=== PATIENT | male | born 1950 | race Caucasian/White ===

== ENCOUNTER 2023-10-31 08:33 | Observation (INO) | payer MEDICARE, BC ==
[2023-10-30 15:09] LABS: ALBUMIN 4.1 G/DL (3.4-5.0); ANION GAP 4 (8-16); BLOOD UREA NITROGEN 21 MG/DL (7-18); BUN/CREATININE RATIO 16.3 (10.0-20.0); CALCIUM 9.6 MG/DL (8.5-10.1); CHLORIDE 99 MMOL/L (99-107); CREATININE 1.29 MG/DL (0.60-1.10); GLUCOSE 140 MG/DL (70-104); SODIUM 133 MMOL/L (135-145); TOTAL CARBON DIOXIDE 29.9 MMOL/L (24-32); eGFR 55 ML/MIN
[2023-10-30 15:13] LABS: APTT 28 SECONDS (22-32); PROTHROMBIN TIME 11.1 SECONDS (9.0-12.0)
[2023-10-30 15:19] LABS: BASOPHILS # (AUTO) 0.1 X10'3 (0-0.2); BASOPHILS % (AUTO) 0.8 % (0-1); EOSINOPHILS # (AUTO) 0.2 X10'3 (0-0.9); EOSINOPHILS % (AUTO) 3.3 % (0-6); HEMATOCRIT 44.4 % (42.0-52.0); LYMPHOCYTES # (AUTO) 1.7 X10'3 (1.1-4.8); LYMPHOCYTES % (AUTO) 23.1 % (21-51); MEAN CORPUSCULAR HEMOGLOBIN 31.4 PG (27.0-31.0); MEAN CORPUSCULAR HGB CONC 33.8 g/dL (33.0-36.5); MEAN CORPUSCULAR VOLUME 92.9 FL (78-98); MEAN PLATELET VOLUME 9.4 FL (7.4-10.4); MONOCYTES # (AUTO) 0.7 X10'3 (0-0.9); MONOCYTES % (AUTO) 9.7 % (2-12); NEUTROPHILS # (AUTO) 4.6 X10'3 (1.8-7.7); NEUTROPHILS % (AUTO) 63.1 % (42-75); PLATELET COUNT 202 X10'3 (140-440); RED BLOOD COUNT 4.78 X10'6 (4.70-6.10); RED CELL DISTRIBUTION WIDTH 14.2 % (11.5-14.5); WHITE BLOOD COUNT 7.3 X10'3 (4.5-11.0)
[2023-10-31] VITALS (20 sets, daily range): BP systolic 136–190; BP diastolic 72–112; PULSE 46–73; RESP 15–24; TEMP 97.8; O2SAT 94–98
[~2023-10-31] VITALS: Ht 172.7 cm; Wt 143.1 kg
[2023-10-31] MEDS ORDERED: LORazepam 0.5 MG tablet PO PRN (08:45)
[2023-10-31] MEDS ORDERED: diphenhydrAMINE 25mg capsule PO PRN (08:45)
[2023-10-31] MEDS ORDERED: sodium bicarbonate 1meq/ml inj 150 ML in dextrose 5%-water 1,000 ML IV SCH (08:55)
[2023-10-31] MEDS ORDERED: ASPI81TA52 PO (08:56)
[2023-10-31] MEDS ORDERED: LISI40TA13 PO (08:56)
[2023-10-31] MEDS ORDERED: PRAM0.129 PO (08:58)
[2023-10-31] MEDS ORDERED: OMEP20CA16 PO (08:58)
[2023-10-31] MEDS ORDERED: METF-1203 PO (08:59)
[2023-10-31] MEDS ORDERED: CITA20TA28 PO (08:59)
[2023-10-31] MEDS ORDERED: METO100T14 PO (08:59)
[2023-10-31] MEDS ORDERED: LOSA1TAB39 PO (08:59)
[2023-10-31] MEDS ORDERED: ROSU20TA73 PO (09:00)
[2023-10-31] MEDS ORDERED: MODA100T31 PO (09:00)
[2023-10-31] MEDS ORDERED: CLON0.2T PO (09:00)
[2023-10-31] MEDS ORDERED: acetylcysteine 200 MG/ml 4ml vial PO PRN (09:22)
[2023-10-31] MEDS: normal saline 1,000 ML IV SCH ×2 (09:56→18:45)
[2023-10-31] MEDS ORDERED: LIDOcaine 1% (10mg/ml) 2ml vial ONE ×2 (10:50→15:11)
[2023-10-31] MEDS ORDERED: verapamil 2.5 mg/ml inj IV ONE ×2 (10:50→14:50)
[2023-10-31] MEDS ORDERED: heparin 1,000unit/ml 10ml vial 10 ML ONE ×2 (10:51→14:51)
[2023-10-31] MEDS ORDERED: midazolam 1 mg/ML 2ml injection ONE ×2 (10:51→14:51)
[2023-10-31] MEDS ORDERED: iohexol 350 MG/ML 50ML vial IV ONE ×2 (10:51→14:51)
[2023-10-31] MEDS ORDERED: nitroGLYCERIN 500mcg/5mL D5W 5 ML IV ONE ×2 (10:51→14:52)
[2023-10-31] MEDS ORDERED: fentaNYL/PF 50MCG/1 ML 2ML syringe ONE ×2 (10:51→14:51)
[2023-10-31] MEDS ORDERED: iohexol 350MG/ML 100ml bottle IV ONE ×2 (10:51→14:51)
[2023-10-31] MEDS ORDERED: heparin 1,000 UNITS/NS 500ml 500 ML ONE (14:52)
[2023-10-31] MEDS ORDERED: HYDROcodone/acetaminophen 5mg/325mg tablet PO PRN (17:10)
[2023-10-31] MEDS ORDERED: acetylcysteine 200 MG/ml 4ml vial PO ONE (18:35)
[2023-10-31] MEDS ORDERED: metoprolol tartrate 50mg tablet PO ONE (20:05)
[2023-10-31] MEDS ORDERED: cloNIDine 0.1 mg tablet PO ONE (20:05)
[2023-10-31] MEDS ORDERED: fentaNYL/PF 50MCG/1 ML 2ML syringe IV ONE (20:45)
[2023-10-31] MEDS ORDERED: hydrALAZINE 20mg/ml inj. IV ONE ×2 (20:45→21:40)
[2023-10-31] MEDS ORDERED: ketorolac tromethamine 15mg/ml inj. IV ONE (21:40)
[2023-10-31] MEDS: HYDROcodone/acetaminophen 10/325mg tab PO PRN (23:29)
[2023-11-01 02:00] VITALS: BP 139/72; PULSE 57; RESP 16; TEMP 98.3; O2SAT 96
[2023-11-01] MEDS: normal saline 1,000 ML IV SCH (04:45)
[2023-11-01 06:00] VITALS: BP 113/69; PULSE 54; RESP 20; TEMP 97.7; O2SAT 96
[2023-11-01 06:18] LABS: BASOPHILS % (AUTO) 0.5 % (0-1); EOSINOPHILS # (AUTO) 0.1 X10'3 (0-0.9); EOSINOPHILS % (AUTO) 0.9 % (0-6); HEMATOCRIT 40.7 % (42.0-52.0); HEMOGLOBIN 13.9 g/dl (14.0-17.9); LYMPHOCYTES # (AUTO) 1.4 X10'3 (1.1-4.8); LYMPHOCYTES % (AUTO) 17.3 % (21-51); MEAN CORPUSCULAR HEMOGLOBIN 31.2 PG (27.0-31.0); MEAN CORPUSCULAR HGB CONC 34.1 g/dL (33.0-36.5); MEAN CORPUSCULAR VOLUME 91.6 FL (78-98); MEAN PLATELET VOLUME 9.2 FL (7.4-10.4); MONOCYTES # (AUTO) 0.6 X10'3 (0-0.9); MONOCYTES % (AUTO) 7.3 % (2-12); NEUTROPHILS # (AUTO) 5.9 X10'3 (1.8-7.7); PLATELET COUNT 174 X10'3 (140-440); RED BLOOD COUNT 4.44 X10'6 (4.70-6.10); RED CELL DISTRIBUTION WIDTH 14.5 % (11.5-14.5)
[2023-11-01 06:33] LABS: ALBUMIN 3.5 G/DL (3.4-5.0); ANION GAP 8 (8-16); BLOOD UREA NITROGEN 20 MG/DL (7-18); BUN/CREATININE RATIO 16.1 (10.0-20.0); CHLORIDE 99 MMOL/L (99-107); CREATININE 1.24 MG/DL (0.60-1.10); GLUCOSE 140 MG/DL (70-104); POTASSIUM 3.7 MMOL/L (3.5-5.1); PRO BRAIN NATRIURETIC PEPTIDE 486 PG/ML (0-125); SODIUM 134 MMOL/L (135-145); TOTAL CARBON DIOXIDE 27.3 MMOL/L (24-32); eCRCL 52 ML/MIN; eGFR 57 ML/MIN
[2023-11-01] MEDS ORDERED: pantoprazole 40mg Tablet.DR PO SCH (07:30)
[2023-11-01] MEDS ORDERED: metoprolol tartrate 50mg tablet PO SCH (08:00)
[2023-11-01] MEDS ORDERED: losartan 50mg tablet PO SCH (08:00)
[2023-11-01] MEDS ORDERED: citalopram 20mg tablet PO SCH (08:00)
[2023-11-01] MEDS ORDERED: cloNIDine 0.1 mg tablet PO SCH (08:00)
[2023-11-01] MEDS ORDERED: modafinil 100mg tablet PO SCH (08:00)
[2023-11-01] MEDS ORDERED: aspirin 81mg, enteric-coated 1 TAB TABLET.DR PO SCH (08:00)
[2023-11-01] MEDS ORDERED: HYDROchlorothiazide 25mg tablet PO SCH (08:00)
[2023-11-01] MEDS ORDERED: lisinopril 20mg tablet PO SCH (08:00)
[2023-11-01] MEDS: HYDROcodone/acetaminophen 10/325mg tab PO PRN (08:06)
[2023-11-01 08:10] VITALS: BP_SYST 113; PULSE 54
[2023-11-01 08:30] VITALS: RESP 16; O2SAT 96
[2023-11-01 09:06] VITALS: RESP 16
[2023-11-01] MEDS ORDERED: ROSUVASTATIN CALCIUM 5 MG TABLET PO SCH (21:00)
[2023-11-01] MEDS ORDERED: pramipexole 0.25mg tablet PO SCH (21:00)
[2023-11-02] MEDS ORDERED: metFORMIN 500mg tablet PO SCH (17:30)
== END 2023-11-01 11:02 | disposition home or self-care (01) ==
LOC: SSTAY O 08:33 → PCU 3S 21:45
PROVIDERS: ADMIT Internal Medicine Cardiovascular Disease; ATTEND Internal Medicine Cardiovascular Disease
DX: I25.119 Atherosclerotic heart disease of native coronary artery with unspecified angina pectoris (principal); I35.0 Nonrheumatic aortic (valve) stenosis; E11.9 Type 2 diabetes mellitus without complications; I11.0 Hypertensive heart disease with heart failure; I50.9 Heart failure, unspecified; K21.9 Gastro-esophageal reflux disease without esophagitis; F32.A Depression, unspecified; J45.909 Unspecified asthma, uncomplicated; E66.01 Morbid (severe) obesity due to excess calories; E78.5 Hyperlipidemia, unspecified; G47.30 Sleep apnea, unspecified; E66.9 Obesity, unspecified; Z79.899 Other long term (current) drug therapy
CPT/HCPCS: 36415; 76937; 80048; 82948; 83880; 85025; 85610; 85730; 93005; 93460; 96365; 96366; 96375; 96376; A6258; G0378; J0360; J1644; J1885; J2250; J3010; J3490; J7030; J7070; Q0163; Q9967; 99152; 99153; A6402; C1725; C1751; C1894

== ENCOUNTER 2023-12-12 11:14 | Outpatient (CLI) | payer MEDICARE, BC ==
[~2023-12-12 11:14] MED LIST: ASPI81TA52 PO; CITA20TA28 PO; CLON0.2T PO; LISI40TA13 PO; LOSA1TAB39 PO; METF-1203 PO; METO100T14 PO; MODA100T31 PO; OMEP20CA16 PO; PRAM0.129 PO; ROSU20TA73 PO
[2023-12-12 12:01] LABS: BASOPHILS % (AUTO) 0.6 % (0-1); EOSINOPHILS # (AUTO) 0.2 X10'3 (0-0.9); EOSINOPHILS % (AUTO) 3.2 % (0-6); HEMOGLOBIN 14.6 g/dl (14.0-17.9); LYMPHOCYTES # (AUTO) 1.2 X10'3 (1.1-4.8); LYMPHOCYTES % (AUTO) 16.4 % (21-51); MEAN CORPUSCULAR HEMOGLOBIN 31.3 PG (27.0-31.0); MEAN CORPUSCULAR HGB CONC 33.9 g/dL (33.0-36.5); MEAN CORPUSCULAR VOLUME 92.4 FL (78-98); MEAN PLATELET VOLUME 9.3 FL (7.4-10.4); MONOCYTES # (AUTO) 0.6 X10'3 (0-0.9); MONOCYTES % (AUTO) 8.6 % (2-12); NEUTROPHILS # (AUTO) 5.2 X10'3 (1.8-7.7); NEUTROPHILS % (AUTO) 71.2 % (42-75); PLATELET COUNT 184 X10'3 (140-440); RED BLOOD COUNT 4.65 X10'6 (4.70-6.10); RED CELL DISTRIBUTION WIDTH 14.6 % (11.5-14.5); WHITE BLOOD COUNT 7.2 X10'3 (4.5-11.0)
[2023-12-12 12:05] LABS: APTT 28 SECONDS (22-32); PROTHROMBIN TIME 11.2 SECONDS (9.0-12.0)
[2023-12-12 12:49] LABS: ALANINE AMINOTRANSFERASE 43 U/L (12-78); ALBUMIN 4.2 G/DL (3.4-5.0); ALBUMIN/GLOBULIN RATIO 1.2 (1.1-1.5); ALKALINE PHOSPHATASE 43 IU/L (46-116); ANION GAP 10 (8-16); ASPARTATE AMINO TRANSFERASE 31 U/L (10-37); BILIRUBIN,TOTAL 1.2 MG/DL (0.1-1.0); BLOOD UREA NITROGEN 21 MG/DL (7-18); BUN/CREATININE RATIO 14.2 (10.0-20.0); CALCIUM 9.2 MG/DL (8.5-10.1); CHLORIDE 101 MMOL/L (99-107); CREATININE 1.48 MG/DL (0.60-1.10); GLUCOSE 159 MG/DL (70-104); POTASSIUM 3.7 MMOL/L (3.5-5.1); PRO BRAIN NATRIURETIC PEPTIDE 374 PG/ML (0-125); SODIUM 137 MMOL/L (135-145); TOTAL CARBON DIOXIDE 26.1 MMOL/L (24-32); TOTAL PROTEIN 7.6 G/DL (6.4-8.2); eGFR 47 ML/MIN
[2023-12-12] MEDS ORDERED: IODIXANOL 320 MG/ML INFUS..BTL 100ML IV ONE (13:13)
== END 2023-12-12 23:59 | disposition home or self-care (01) ==
LOC: RAD 11:14
PROVIDERS: ATTEND Internal Medicine Cardiovascular Disease
DX: I65.23 Occlusion and stenosis of bilateral carotid arteries (principal); K80.20 Calculus of gallbladder without cholecystitis without obstruction; K76.0 Fatty (change of) liver, not elsewhere classified; I35.0 Nonrheumatic aortic (valve) stenosis; R06.02 Shortness of breath; M47.9 Spondylosis, unspecified; D18.09 Hemangioma of other sites
CPT/HCPCS: 36415; 71046; 71275; 74174; 75572; 80053; 83880; 85025; 85610; 85730; 93880; 94010; 94727; 94729; J3490; Q9967